=== PATIENT | male | born 1990 ===

== ENCOUNTER → 2025-01-27 | Emergency (ER) | payer MEDICAID ==
[~2025-01-27] VITALS: Ht 185.4 cm; Wt 100.0 kg
[~2025-01-27] MED LIST: OLANZapine **IM** 10 mg inj. IM STA; ketorolac trometh 30MG/ML vial 30 MG/ML VIAL IV STA; normal saline 1000ml 1,000 ML IV STA
[2025-01-27 12:38] VITALS: BP 142/88; PULSE 79; RESP 18; TEMP 97.3; O2SAT 100
[2025-01-27 13:08] LABS: MEAN PLATELET VOLUME 10.0 FL (7.4-10.4); RED CELL DISTRIBUTION WIDTH 12.6 % (11.5-14.5)
[2025-01-27 13:19] LABS: CREATININE 0.95 MG/DL (0.60-1.10); TOTAL CARBON DIOXIDE 26.9 MMOL/L (24-32); eCRCL 124 ML/MIN; eGFR > 90 ML/MIN
--- NOTE | 2025-01-27 14:58 | Physician Documentation ---
History of Present Illness ~ Chief Complaint: Abdominal Pain w/vomiting Stated Complaint: ABD PAIN Time Seen by MD: 14:46 Source: patient, family HPI The patient is seen Today with complaints of significant nausea and vomiting over the last week. Patient is seen today with his mother who states he has had episodes back and forth of nausea and vomiting without fever or body aches or chills over the last week or so. Patient does admit to heavy use of cannabis and states he stopped using cannabis a week ago when it started. Patient has no other concern or complaint at this time. Medication Reconciliation Allergies: Coded Allergies: No Known Allergies (Unverified , 01/27/25) Review of Systems Constitutional: Denies: chills, fever, weakness Eyes: Denies: pain, blurred vision ENT: Denies: ear pain, nose pain, throat pain, mouth pain Respiratory: Denies: cough, shortness of breath Cardiovascular: Denies: chest pain, palpitations Gastrointestinal: Denies: abdominal pain, nausea, vomiting Genitourinary: Denies: burning, dysuria Male Genitalia: Denies: penile discharge, testicular pain Neurological: Denies: headache, dizziness Musculoskeletal: Denies: pain, swelling Integumentary: Denies: rash, lesions Allergic/Immunologic: Denies: hives, itching Hematologic/Lymphatic: Denies: no symptoms reported Psychiatric: Denies: depression, anxiety Physical Exam Vital Signs: Temperature: 97.3, Source: Oral, Heart Rate: 79, Respiratory Rate: 18, BP: 142/88, Pulse Oximetry: 100, Weight: 100.000 Oxygen Flow Rate: 0 Physical Exam General: Awake and Alert, no acute distress. HEENT: Conjunctiva pink, Sclera clear, Mucus Membranes moist. Neck: Supple without masses and tenderness. Resp: Unlabored. Lungs clear to auscultation bilaterally. Heart: Regular Rate and rhythm, normal S1 and S2 without murmur, rub or gallop. Abdomen: Abdomen is soft, nondistended, nontender to palpation, no guarding and no rebound tenderness. Extremities: No cyanosis,clubbing or edema. Skin: Warm and Dry. Progress Results/Orders Results/Orders Orders - FRANKI MCDOWELL PAC Saline Lock (01/27/25 ) Completed Orders - FRANKI MCDOWELL PAC Olanzapine Im (Zyprexa I.M. Im On (01/27/25 14:50) Normal Saline 1000ml (0.9% Sodium Chlori (01/27/25 14:50) Normal Saline 1000ml (0.9% Sodium Chlori (01/27/25 14:50) Prochlorperazine Inj (Compazine Inj) (01/27/25 14:50) Ketorolac Trometh 30mg/Ml Vial (Toradol (01/27/25 14:50) Vital Signs 01/27/25 12:38 Temp 97.3 Pulse 79 Resp 18 B/P (MAP) 142/88 Pulse Ox 100 O2 Flow Rate 0 Laboratory Tests Test 01/27/25 12:47 White Blood Count 13.0 H Red Blood Count 5.05 Hemoglobin 15.4 Hematocrit 45.2 Mean Corpuscular Volume 89.5 Mean Corpuscular Hemoglobin 30.5 Mean Corpuscular Hemoglobin Concent 34.1 Red Cell Distribution Width 12.6 Platelet Count 237 Mean Platelet Volume 10.0 Neutrophils (%) (Auto) 88.4 H Lymphocytes (%) (Auto) 7.8 L Monocytes (%) (Auto) 3.2 Eosinophils (%) (Auto) 0.1 Basophils (%) (Auto) 0.5 Neutrophils # (Auto) 11.5 H Lymphocytes # (Auto) 1.0 L Monocytes # (Auto) 0.4 Eosinophils # (Auto) 0.0 Basophils # (Auto) 0.1 CBC Comment Sodium Level 142 Potassium Level 3.5 Chloride Level 107 Carbon Dioxide Level 26.9 Anion Gap 8 Blood Urea Nitrogen 11 Creatinine 0.95 Estimated GFR/1.73 m2 > 90 BUN/Creatinine Ratio 11.6 Glucose Level 121 H Calcium Level 9.1 Total Bilirubin 0.5 Aspartate Amino Transf (AST/SGOT) 20 Alanine Aminotransferase (ALT/SGPT) 30 Alkaline Phosphatase 90 Total Protein 7.7 Albumin 3.9 Globulin 3.8 Albumin/Globulin Ratio 1.0 L Lipase 25 Chemistry Comments Medical Decision Making Findings The patient is seen Today with complaints of significant nausea and vomiting over the last week. Patient is seen today with his mother who states he has had episodes back and forth of nausea and vomiting without fever or body aches or chills over the last week or so. Patient does admit to heavy use of cannabis and states he stopped using cannabis a week ago when it started. Patient has no other concern or complaint at this time. Patient eloped prior to further treatment and consult and evaluation unfortunately. Patient will return to ED with any worsening, concerning or changing symptoms. Departure Disposition: 07 LEFT AWOL/ELOPED Impression: Primary Impression: Cannabinoid hyperemesis syndrome Condition: Stable Additional Instructions: Patient eloped prior to further treatment and consult and evaluation unfortunately. Patient will return to ED with any worsening, concerning or changing symptoms. Referrals: NO PRIMARY CARE PROVIDER (PCP) Signature Scribe Signature: No scribe Attestation: No scribe FRANKI MCDOWELL PAC Jan 27, 2025 14:58
== END | disposition home or self-care (01) ==
LOC: ER 12:03
DX: R11.10 Vomiting, unspecified (principal); F12.90 Cannabis use, unspecified, uncomplicated
CPT/HCPCS: 36415; 80053; 83690; 85025; 99283